=== PATIENT | female | born 1955 | race Caucasian/White ===

== ENCOUNTER → 2016-08-31 | Outpatient (CLI) | payer OTHER, MEDICAID ==
[~2016-08-31] MED LIST: BACITRACIN OINT30 GM TP; CARAFATE 1GM TAB1 GM PO; CIPRO 500MG TA500 MG PO; LEVOTHYROXIN0.075 M1 PO; LISINOPRIL 10MG10 MG PO; LORTAB 5/500 501 TAB PO; NEXIUM40 MG PO; NORCO 325 MG-51 TAB PO; PHENERGAN 25MG.25 M1 PO; PHENERGAN 25MG.25 MG PR; TESSALON PERLE100 MG PO; TRAMADOL50 M1 PO; VOLTAREN75 MG PO
--- NOTE | 2016-08-31 09:18 | RADIOLOGY REPORT PS360 ---
ELBOW-RT-3 VIEWS HISTORY: Follow-up fracture HEALING OF RT ELBOW FX ORDERING PHYSICIAN: CHEYENNE MARROQUIN MD PATIENT AGE: 61 years COMPARISON: 08/08/2016 FINDINGS: Healing fracture once again noted involving the neck of the radius with good alignment. Sclerosis noted at the radial neck as before. IMPRESSION: No change healing radial neck fracture
--- NOTE | 2016-08-31 09:18 | RADIOLOGY REPORT PS360 ---
ELBOW-RT-3 VIEWS HISTORY: Follow-up fracture HEALING OF RT ELBOW FX ORDERING PHYSICIAN: CHEEYNNE MARROQUIN MD PATIENT AGE: 61 years COMPARISON: 08/08/2016 FINDINGS: Healing fracture once again noted involving the neck of the radius with good alignment. Sclerosis noted at the radial neck as before. IMPRESSION: No change healing radial neck fracture
== END ==
LOC: RAD 08:29
DX: S52.134D Nondisplaced fracture of neck of right radius, subsequent encounter for closed fracture with routine healing (principal)

== ENCOUNTER 2016-09-20 11:07 | Emergency (ER) | payer MEDICAID ==
[~2016-09-20] VITALS: Ht 172.7 cm; Wt 87.1 kg
--- OUTSIDE RECORDS SUMMARY | 2016-09-20 11:14 | External Medical Summary Rpt ---
Demographics Preferred Language Albanian Marital Status Unknown Yazidi Affiliation Unknown Race Unknown Ethnic Group Unknown Author Author , Organization [employer] Address Unknown Phone Unavailable Purpose Continuity of Care Document - through 2016 Immunization No patient found.
--- OUTSIDE RECORDS SUMMARY | 2016-09-20 11:14 | External Medical Summary Rpt ---
Demographics Preferred Language Kiswahili Marital Status Unknown Methodist Affiliation Unknown Race Unknown Ethnic Group Unknown Author Author , Organization [employer] Address Unknown Phone Unavailable Purpose Continuity of Care Document - through 2016 Immunization No patient found.
--- OUTSIDE RECORDS SUMMARY | 2016-09-20 11:14 | External Medical Summary Rpt ---
Author Author BECKY Carballo, BECKY Carballo Organization [employer] Address Unknown Phone Unavailable
--- OUTSIDE RECORDS SUMMARY | 2016-09-20 11:14 | External Medical Summary Rpt ---
Author Author , Organization [employer] Address Unknown Phone Unavailable Care Team Providers Care Health Safety Coordinator Name Role Phone Marguerite Patel MD, Unavailable Unavailable Marguerite Patel MD Purpose Continuity of Care Document - 11-14-2012 through 2016 Problems Code Diagnosis DOS Provider Status 401.9 401.9 11-14-2012 Rufino HYPERTENSIO [facility] 844.9 844.9 11-14-2012 Rufino SPRAIN OF [facility] KNEE & LEG [facility] NOS 914.0 914.0 11-14-2012 Rufino ABRASION [facility] E849.3 E849.3 ACC 11-14-2012 Rufino ON INDUSTR [facility] E885.9 E885.9 FALL 11-14-2012 Rufino FROM [facility] SLIPPING, Hospital TRIPPING, OR STUMBLING [facility] V06.5 V06.5 11-14-2012 Rufino TETANUS-DIP [facility] [TD][DT] K27.9 PEPTIC ULC, SITE UNSP, UNSP AC OR CHR, W/O HEMOR OR PERF Allergies, Adverse Reactions, Alerts Type Drug Allergy Adverse Reaction to Substance Substance Reaction Severity Morphine Unknown Unknown Medications Na ND Rx Da Fi Fi Am Da Di Ph RX Ph St me C No te ll ll ou ys ag ar # ys at rm s nt no ma ic us Or Da si cy ia de te s n re d AD 49 07 0 No AC 28 -3 EL 10 1- Lo 40 20 ng TD 01 13 er AP 0 Ac ti AL ve BA 45 07 0 No CI 80 -3 TR 20 1- Lo AC 06 20 ng IN 07 13 er 0 50 Ac 0 ti UN ve IT /G M OI NT MN T Vital Signs 11-14-2012 11:41 Name Value Interpretat Reference Comment ion Range Body 98.5 [degF] Temperature BP 96 mm[Hg] Diastolic BP Systolic 170 mm[Hg] Heart 89 /min Rate/Pulse O2% 98 % Respiratory 20 /min Rate 11-14-2012 11:39 Name Value Interpretat Reference Comment ion Range Body 98.5 [degF] Temperature 11-14-2012 10:18 Name Value Interpretat Reference Comment ion Range BP 98 mm[Hg] Diastolic BP Systolic 163 mm[Hg] Heart 85 /min Rate/Pulse O2% 98 % Respiratory 20 /min Rate Encounters Encounter Start End Date Code Location Performer Type Date Emergency PUSHPA Patel MD (ER) 3 09:38 3 11:53 [facility]
--- OUTSIDE RECORDS SUMMARY | 2016-09-20 11:14 | External Medical Summary Rpt ---
Author Author [employer] Organization [employer] Address Unknown Phone Unavailable Purpose Continuity of Care Document - through 2016
--- OUTSIDE RECORDS SUMMARY | 2016-09-20 11:14 | External Medical Summary Rpt ---
Author Author , Organization [employer] Address Unknown Phone Unavailable Care Team Providers Care Wheel Installer Name Role Phone Marguerite Patel MD, Unavailable Unavailable Marguerite Patel MD Purpose Continuity of Care Document - 11-14-2012 through 2016 Problems Code Diagnosis DOS Provider Status 401.9 401.9 11-14-2012 Rufino HYPERTENSIO [facility] 844.9 844.9 11-14-2012 Rufino SPRAIN OF [facility] KNEE & LEG [facility] NOS 914.0 914.0 11-14-2012 Rufino ABRASION [facility] E849.3 E849.3 ACC 11-14-2012 Rufino ON INDUSTR [facility] E885.9 E885.9 FALL 11-14-2012 Rufino FROM [facility] SLIPPING, Hospital TRIPPING, OR STUMBLING [facility] V06.5 V06.5 11-14-2012 Rufino TETANUS-DIP [facility] [TD][DT] K27.9 PEPTIC ULC, SITE UNSP, UNSP [...] Patel MD (ER) 3 09:38 3 11:53 [facility]
--- NOTE | 2016-09-20 11:40 | Urgent Treatment Center Report ---
History of Present Issue Date/Time Seen by Provider 09/20/16 1139 Visit Reason Pt arrived:Walked Presenting Problem:PT STATES COUGH, HEADACHE AND CONGESTION THAT BEGAN MONDAY Location if Accident: Onset of symptoms date/time:09/17/16/ or onset unknown for:MEDICAL HX UNKNOWN Have you (or family members/close friends) recently traveled outside the [place]? N If Yes, where/when: Have you had exposure to infectious disease within the past month? TB? Other? Specify: Source patient Exam Limitations no limitations Comment 61-year-old female presents for fever(103), cough and chest congestion for a few days. Patient states she's coughed and made her ribs sore. ALLERGIES Coded Allergies: morphine (Intermediate, I-RASH/ITCHING 03/19/15) Home Medications Active Scripts BENZONATATE (Benzonatate) 100 MG PO TID #15 CAP Prov: 04/12/14 LISINOPRIL (Lisinopril) 10 MG PO DAILY #30 TAB Prov: 04/12/14 HYDROCODONE/ACETAMINOPHEN ([place] 5-325 Tablet) 1 TAB PO Q6HP PRN moderate to severe pain #8 TAB Prov: 07/12/16 Reported Medications Levothyroxine Sodium (Levothyroxine 0.075MG) 0.075 MG PO DAILY #30 History Medical History General CAD? No Angina: No [place]: No Hypertension? Yes Hyperlipidemia? Yes CHF? No DVT? No PE? No COPD? No Asthma? No Anemia? No GERD? No Gastric ulcers? No GI Bleed? No Hernia? No Thyroid Problems? Yes Hypothyroidism? Yes CVA? No Seizures? No Diabetes? No Renal Insuffiency? No UTI? No Stones? No GB Disease: Yes Nephritic Syndrome? No Asplenia? No Hepatitis? No Sickle Cell Disease? No Arthritis? Yes Migraines? No Cataracts? No Glaucoma? No MRSA? No HIV? No TB? No Anxiety? No Depression? No Cancer? No More? No Immunization HX DT/Tetanus 11/14/12 Flu 2014-FSN Pneumonia NEVER Surgical Hx Previous Surgery?Y HYSTERECTOMY GROWTH REMOVED NECK GALL BLADDER HEART ABLATION LT FEMUR FX REPAIR Family History Family HX Diabetes No CAD No Hypertension Yes Hyperlipidemia No Cancer No TB No Social History Smoking Hx Smoker: Never Smoker Tobacco: No Alcohol Alcohol: No Review of Systems All Other Systems Reviewed and Negative Constitutional see HPI, fever Eyes denies no symptoms reported Respiratory see HPI, cough Physical Exam Vital Signs Vital Signs Date Time Temp Pulse Resp B/P Pulse O2 O2 Flow FiO2 Ox Delivery Rate 09/20 1127 97.9 93 22 171/88 96 - WBC >12,000 or <4,000 or 10% bands? 2 or more SIRS Criteria Met? B/P:171/88 MAP:115 Creatinine >2.0? UA output<0.5ml/kg/hr for 2 hrs? Platelet count >100,000? Lactate >2.0mmol/1? INR >1.2 or PTT > than 60 sec? Evidence of Organ Dysfunction? Provider documented clinical suspician of infection? Sepsis Criteria Count: 2 Sepsis Risk: General Appearance normal appearance, no apparent distress Eye Exam - bilateral eye normal exam, bilateral eye PERRL, bilateral eye EOMI Ear, Nose, Throat hearing grossly normal, normal ENT inspection Neck normal inspection, full range of motion Respiratory Status Yes: trachea midline, chest symmetrical, non tender chest. No: respiratory distress. Lung Sounds bilateral: normal breath sounds, lungs clear. Cardiovascular normal exam, regular rate/rhythm, no peripheral edema Neurologic alert, normal exam, oriented x 3 Medical Decision Making LABS/Meds/Orders Pt receiving controlled substance in ED? No Results/Orders Orders Procedure Date/time Status CHEST(2 VIEWS-NOT PORTABLE) 09/20 1138 Active XRAY/CT/US XRAY/CT/US XRAY chest Xray Results normal/NAD, no infiltrates Departure Departure Time of Disposition 1237 Disposition DC Home or Self Care(routine) Clinical Impression Primary Impression: Acute bronchitis Qualifiers: Bronchitis organism: unspecified organism Qualified Code: J20.9 - Acute bronchitis, unspecified Condition STABLE Referrals Neftaly GARCÍA,Sly Garza (Family) Patient Instructions DI for Acute Bronchitis Additional Instructions Tylenol and Motrin as needed for pain or fever, follow-up with PCP this week, return or be seen in the ER if symptoms worsen or do not improve Discharge Counseling Counseled pt/family regarding diagnosis, test results, medications/RX, home care, follow up needs Prescriptions Current Visit Scripts Azithromycin (Zithromax) 250 MG PO DAILY #6 TAB USE DIRECTED. Benzonatate (Tessalon Perle) 100 MG PO BID 5 Days Comments Tylenol Motrin as needed for pain or fever, follow-up with PCP this week, return or be seen in the ER if symptoms worsen or do not improve at 3872
--- NOTE | 2016-09-20 12:16 | RADIOLOGY REPORT PS360 ---
CHEST(2 VIEWS-NOT PORTABLE) HISTORY: COUGH ORDERING PHYSICIAN: Irena Sheets PATIENT AGE: 61 years COMPARISON: 02/25/2014 FINDINGS: The cardiomediastinal silhouette and pulmonary vascularity are within normal limits. The lungs are clear without infiltrates, suspicious nodules, or pleural effusions. No acute bony abnormalities. IMPRESSION: No change with no acute finding
[2016-09-20] MEDS ORDERED: ZITHROMAX Z-PA250 M2 PO (12:38)
[2016-09-20] MEDS ORDERED: TESSALON PERLE100 M1 PO (12:38)
[2016-09-20 12:53] VITALS: BP 171/88
[2016-09-26] MEDS ORDERED: LISINOPRIL40 MG PO (09:07)
== END 2016-09-20 12:54 | disposition home or self-care (01) ==
LOC: UTC 11:07
DX: J20.9 Acute bronchitis, unspecified (principal); I10 Essential (primary) hypertension

== ENCOUNTER → 2017-01-03 | Outpatient (CLI) | payer MEDICAID, OTHER ==
[~2017-01-03] MED LIST changes: +LISINOPRIL40 MG PO; +TESSALON PERLE100 M1 PO; +ZANAFLEX4 M3 PO; +ZITHROMAX Z-PA250 M2 PO
== END ==
LOC: LAB 20:30
DX: E03.9 Hypothyroidism, unspecified (principal)

== ENCOUNTER 2017-01-12 12:27 | Emergency (ER) | payer MEDICAID ==
[~2017-01-12] VITALS: Ht 177.8 cm; Wt 90.7 kg
--- NOTE | 2017-01-12 13:08 | Emergency Room Report ---
History of Present Illness Time Seen by MD Pineda Presenting Problem in Triage Pt arrived:Walked Presenting Problem:PT HAS HAD UPPER ABD PAIN/PRESSURE SINCE MONDAY AND DIARRHEA. STATES SHE FEELS NAUSEATED PT FURTHER STATES SHE USED TO HAVE ULCERS. Onset of symptoms date/time:/ or onset unknown for:MEDICAL HX UNKNOWN Treatment Prior to Arrival: BAKERY WORKER Provided by: Sepsis Risk Assessment: Temp: 98.3 B/P: 199/100 MAP: 133 Pulse: 75 Resp: 18 Recent fever? N Clinical Suspician of Infection? N Mental Status: 1 - Regular (Normal Baseline) Sepsis Risk:Low Sepsis Risk Have you (or family members/close friends) recently traveled outside the [place]? N If Yes, where/when: Have you had exposure to infectious disease within the past month? TB? Other? Specify: 61 years old white female who presents with upper abdominal pain started 3 days ago. By diarrhea 5 times a day. She uses nonsteroidal's for arthritis. She denies vomiting hematemesis bleeding per rectum or black stool. Denies having any chest pain, palpiattions or soa. Source patient, RN notes reviewed Exam Limitations no limitations ALLERGIES Coded Allergies: morphine (Intermediate, I-RASH/ITCHING 01/12/17) Home Medications Active Scripts TIZANIDINE HCL (Zanaflex) 4 MG PO TID #90 TAB Ref 2 Prov: 11/08/16 Reported Medications Lisinopril (Lisinopril 40MG) 40 MG PO DAILY Levothyroxine Sodium (Levothyroxine 0.075MG) 0.075 MG PO DAILY #30 History Medical History General CAD? No Angina: No [place]: No Hypertension? Yes Hyperlipidemia? Yes CHF? No DVT? No PE? No COPD? No Asthma? No Anemia? No GERD? No Gastric ulcers? No GI Bleed? No Hernia? No Thyroid Problems? Yes Hypothyroidism? Yes CVA? No Seizures? No Diabetes? No Renal Insuffiency? No End Stage Renal Disease? No UTI? No Stones? No GB Disease: Yes Nephritic Syndrome? No Asplenia? No Hepatitis? No Sickle Cell Disease? No Arthritis? Yes Migraines? No Cataracts? No Glaucoma? No MRSA? No HIV? No TB? No Anxiety? No Depression? No Cancer? No More? Yes Additional hx: RHEUMATOID ARTHRITIS Immunization Hx Ped.Immunizations UTD Yes DT/Tetanus 11/14/12 Flu 2014-FSN Pneumonia NEVER Surgical Hx Previous Surgery?Y HYSTERECTOMY GROWTH REMOVED NECK GALL BLADDER HEART ABLATION LT FEMUR FX REPAIR RIGHT CARPAL TUNNEL Family History Family Hx Diabetes No CAD No Hypertension Yes Hyperlipidemia No Cancer No TB No Social History Smoking Hx Smoker: Former Smoker Tobacco: No Type N/A Are you/the child exposed to second-hand smoke: No Alcohol Alcohol: No Review of Systems All Other Systems Reviewed and Negative Constitutional no symptoms reported Eyes no symptoms reported ENT no symptoms reported. Respiratory no symptoms reported Cardiovascular no symptoms reported Gastrointestinal see HPI, abdominal pain, diarrhea Genitourinary no symptoms reported. Musculoskeletal no symptoms reported Skin no symptoms reported Psychiatric/Neurological no symptoms reported Physical Exam Vital Signs Vital Signs Date Time Temp Pulse Resp B/P Pulse O2 O2 Flow FiO2 Ox Delivery Rate 01/12 1403 75 18 162/85 98 01/12 1327 77 18 157/87 98 01/12 1246 98.3 75 18 199/100 98 - WBC >12,000 or <4,000 or 10% bands? 2 or more SIRS Criteria Met? B/P:199/100 MAP:133 Creatinine >2.0? UA output<0.5ml/kg/hr for 2 hrs? Platelet count >100,000? Lactate >2.0mmol/1? INR >1.2 or PTT > than 60 sec? Evidence of Organ Dysfunction? Provider documented clinical suspician of infection? N Sepsis Criteria Count: 0 Sepsis Risk: Low Sepsis Risk General Appearance normal appearance, WD/WN Eye Exam - bilateral eye normal exam, bilateral eye PERRL, bilateral eye EOMI Ear, Nose, Throat hearing grossly normal, normal ENT inspection Neck normal inspection, non-tender, supple, full range of motion Respiratory Status Yes: trachea midline, chest symmetrical, non tender chest. No: respiratory distress. Lung Sounds bilateral: normal breath sounds, lungs clear. Cardiovascular normal exam, regular rate/rhythm, no peripheral edema, no gallop, no JVD, no murmur, no rub, normal peripheral pulses Peripheral Pulses Pulses normal Yes Gastrointestinal normal bowel sounds, obese abdomen with diffuse mild tenderness and voluntary guarding, no focal tenderness no cross tenderness no rebound tenderness. Positive bowel sounds Extremities non-tender, normal range of motion, normal inspection Rectal normal exam Neurologic alert, wood filler II-XII nml as tested, normal exam, oriented x 3 Reflexes Reflexes normal Yes Skin intact, normal color, warm/dry Medical Decision Making LABS/Meds/Orders Pt receiving controlled substance in ED? No Results/Orders Laboratory Tests 01/12/17 1310: Troponin I Cancelled 01/12/17 1305: Stool Occult Blood NEGATIVE 01/12/17 1304: TSH 8.25 H, Free T4 Index 6.0, Thyroxine (T4) 7.6, T3 Uptake 32 01/12/17 1304: Sodium 140, Potassium 3.9, Chloride 107, Carbon Dioxide 26, BUN 15, Creatinine 0.9, Estimated Creat Clear 95, Estimated GFR (MDRD) 64, Glucose 115 H, Calcium 9.1, Total Bilirubin 0.3, AST 13 L, ALT 27, Alkaline Phosphatase 81, Creatine Kinase 42, CK-MB (CK-2) Rel Index 1.2, CK and CKMB Interp < 0.5, Troponin I < 0.02, Total Protein 7.4, Albumin 4.2, Globulin 3.2, Albumin/Globulin Ratio 1.3, Lipase 202, WBC 6.6, RBC 4.73, Hgb 14.0, Hct 41.7, MCV 88.2, RDW 15.3, Plt Count 234, Gran % 64.2, Gran # 4.2, Lymphocytes % 31.1, Monocytes % 4.7, Lymphocytes # 2.1, Monocytes # 0.3, PUBS MCHC 33.6, MCH 29.6 Current Medication Orders Sig/Sahara Start time Last Medication Dose Route Stop Time Status Admin Iopamidol 75 ML ONCE ONE 01/12 1530 DC 01/12 IV 01/12 1531 1518 Sodium Chloride 10 ML ONCE ONE 01/12 1530 DC 01/12 IV 01/12 1531 1518 Famotidine 0 .STK-MED ONE 01/12 1331 DC IV Ondansetron HCl 0 .STK-MED ONE 01/12 1331 DC .ROUTE Dicyclomine HCl 0 .STK-MED ONE 01/12 1330 DC PO Dicyclomine HCl 10 MG ONCE ONE 01/12 1315 DC 01/12 PO 01/12 1316 1334 Famotidine 20 MG ONCE ONE 01/12 1315 DC 01/12 IV 01/12 1316 1334 Ondansetron HCl 4 MG ONCE ONE 01/12 1315 DC 01/12 IV 01/12 1316 1334 Sodium Chloride 8 ML ONCE ONE 01/12 1315 DC 01/12 IV 01/12 1316 1335 Sodium Chloride 10 ML PRN PRN 01/12 1300 AC IV 01/13 1249 Diatrizoate Meglum/ 0 .STK-MED ONE 01/12 1259 DC Diatrizoate Sod .ROUTE Orders Procedure Date/time Status DIET-NOTHING BY MOUTH 01/12 D Active THYROID PANEL 2 (WITH TSH) 01/12 1310 Complete DIARRHEA PANEL, PCR 01/12 1308 Active 12 LEAD EKG-BESSON (INITIAL) 01/12 1249 Active ELECTROCARDIOGRAM REQUEST 01/[address] ABD/PELVIS REQ 01/12 1249 Complete IV SALINE LOCK 01/12 1249 Active STOOL OCCULT BLOOD 01/12 1249 Active LIPASE 01/12 1249 Complete CBC WITH AUTO DIFF 01/12 1249 Complete CARDIAC ENZYMES 01/12 1249 Complete CHEM 12 PROFILE 01/12 1249 Complete Departure Departure Time of Disposition 1607 Disposition DC Home or Self Care(routine) Clinical Impression Primary Impression: Abdominal pain of unknown etiology Secondary Impressions: Carotid arterial disease, Diarrhea Condition STABLE Referrals CAMILLA GARCÍA,M S ([facility]) Additional Instructions The patient remained stable. She did not have diarrhea. She did not provide a stool sample CT scan with IV contrast was unremarkable. I discussed the results and discharge plans with her. Her abdomen was soft with minimal tenderness. In fact she felt better. I explained her prescriptions and she will return if she feels worse. She'll need follow-up with Dr. Jj on her diarrhea She will nee out patient carotid US per Dr Jj. SHe felt better wafter using bentyl. Discharge Counseling Counseled pt/family regarding diagnosis, test results, medications/RX, home care, follow up needs Prescriptions Current Visit Scripts Metronidazole (Flagyl 250MG) 250 MG PO Q8 #21 TAB CIPROFLOXACIN HCL (Cipro 250MG TAB) 250 MG PO BID #14 TAB Famotidine (Pepcid 20MG) 20 MG PO Q12 #14 TAB DICYCLOMINE HCL (Bentyl) 10 MG PO Q8HP PRN cramps #21 CAP ED Critical Care Critical Care No If Critical Care minutes are documented, the time involved in the performance of seperately reportable procedures was not counted toward critical care time documented. I directly delivered medical care to this critically ill and/or injured patient. Timely evaluation and treatment was necessary to address the significant organ system(s) dysfunction present in this patient. at 1614
[2017-01-12 13:12] LABS: STOOL OCCULT BLOOD NEGATIVE (NEG)
[2017-01-12 13:13] LABS: LYMPH # 2.1 K/mm3 (0.7-4.5); LYMPH % 31.1 % (10-50.0)
[2017-01-12 13:37] LABS: BUN 15 mg/dL (7-18); GFR (ESTIMATED) 64 ML/MIN (59-)
--- NOTE | 2017-01-12 15:23 | RADIOLOGY REPORT PS360 ---
CHEST(2 VIEWS-NOT PORTABLE) HISTORY: Chest pain S ORDERING PHYSICIAN: Bo Clements MD PATIENT AGE: 61 years COMPARISON: [id number] FINDINGS: The cardiomediastinal silhouette and pulmonary vascularity are within normal limits. The lungs are clear without infiltrates, suspicious nodules, or pleural effusions. No acute bony abnormalities. Left-sided carotid artery calcification consistent with carotid artery disease IMPRESSION: No change with no acute finding Carotid artery disease on the left
--- NOTE | 2017-01-12 15:23 | RADIOLOGY REPORT PS360 ---
CHEST(2 VIEWS-NOT PORTABLE) HISTORY: Chest pain S ORDERING PHYSICIAN: Bo Clements MD PATIENT AGE: 61 years COMPARISON: [id number] FINDINGS: The cardiomediastinal silhouette and pulmonary vascularity are within normal limits. The lungs are clear without infiltrates, suspicious nodules, or pleural effusions. No acute bony abnormalities. Left-sided carotid artery calcification consistent with carotid artery disease IMPRESSION: No change with no acute finding Carotid artery disease on the left
--- NOTE | 2017-01-12 15:58 | RADIOLOGY REPORT PS360 ---
CT ABD PELVIS W/ CONTRAST CLINICAL INDICATION: ABD PAIN,DARK STOOLS,DIARRHEA ORDERING PHYSICIAN: Bo Clements MD PATIENT AGE: 61 years COMPARISON: 02/25/2014 TECHNIQUE: Axial images obtained with sagittal and coronal reformats. PROCEDURE: Oral Contrast: None IV Contrast: 75 mL's Isovue-370. FINDINGS: Lower chest shows coronary artery calcification. Prior cholecystectomy. No biliary dilatation. The liver, spleen, adrenal glands, pancreas, and kidneys have an unremarkable appearance. No evidence of aortic aneurysm. Unremarkable appendix. No intestinal structure in or free air. There is diverticulosis of the sigmoid colon but no evidence of diverticulitis. No intestinal obstruction or free air. There is a tiny umbilical hernia containing fat. There has been a prior hysterectomy Artifact is present from left hip and. No acute bony anomalies. IMPRESSION: No acute intra-abdominal or pelvic findings Diverticulosis. No evidence of diverticulitis
[2017-01-12] MEDS ORDERED: Pepcid20 MG PO (16:11)
[2017-01-12] MEDS ORDERED: CIPRO 250MG TA250 MG PO (16:11)
[2017-01-12] MEDS ORDERED: FLAGYL 250MG.250 MG PO (16:11)
[2017-01-12] MEDS ORDERED: BENTYL10 M1 PO (16:11)
[2017-01-12 16:49] VITALS: BP 155/80
== END 2017-01-12 16:49 | disposition home or self-care (01) ==
LOC: ER 12:27
PROVIDERS: Emergency Medicine
DX: R10.10 Upper abdominal pain, unspecified (principal); R19.7 Diarrhea, unspecified; Z88.6 Allergy status to analgesic agent; I10 Essential (primary) hypertension; E03.9 Hypothyroidism, unspecified
CPT/HCPCS: G0328; J2405; Q9967

== ENCOUNTER → 2017-01-17 | Outpatient (CLI) | payer MEDICAID ==
[2017-01-17 13:11] LABS: HEMOGLOBIN 13.9 g/dL (12.2-16.2); LYMPH # 1.8 K/mm3 (0.7-4.5); LYMPH % 34.2 % (10-50.0)
[2017-01-17 14:14] LABS: BUN 13 mg/dL (7-18)
[2017-01-17 14:22] LABS: GFR (ESTIMATED) 73 ML/MIN (59-)
== END ==
LOC: LAB 12:56
PROVIDERS: Physician Assistant
DX: I77.9 Disorder of arteries and arterioles, unspecified (principal); R10.13 Epigastric pain; I10 Essential (primary) hypertension; E03.9 Hypothyroidism, unspecified

== ENCOUNTER → 2017-01-23 | Outpatient (CLI) | payer MEDICAID ==
[~2017-01-23] MED LIST changes: +BENTYL10 M1 PO; +CIPRO 250MG TA250 MG PO; +FLAGYL 250MG.250 MG PO; +Pepcid20 MG PO
--- NOTE | 2017-01-23 10:33 | RADIOLOGY REPORT PS360 ---
BONE DENSITOMETRY(HIP:LT SPINE HISTORY: POST MENOPAUSAL, HX FRACTURES ORDERING PHYSICIAN: SAÚL EDOUARD PATIENT AGE: 61 years COMPARISON: None FINDINGS: The BMD measured at L1-L4 is 0.972 g/cm squared with a T score of -1.7. This is considered Osteopenic according to the World Health Organization criteria. Fracture risk is Moderate. Treatment is advised. IMPRESSION: Osteopenia with moderate fracture risk. Treatment recommended. Recommend follow up exam January 2019
== END ==
LOC: RAD 01-18 10:00
DX: Z87.81 Personal history of (healed) traumatic fracture (principal)

== ENCOUNTER → 2017-02-03 | Outpatient (CLI) | payer MEDICAID ==
--- NOTE | 2017-02-03 15:27 | CARDIOVASCULAR REPORT ---
"Cerebrovascular Exam Indications: 433.10 Occlusion/stenosis of carotid artery without cerebral infarction. IMPRESSIONS 1. The bilateral vertebral arteries are patent with normal antegrade flow. 2. Study suggests less than 20% stenosis involving the right internal carotid artery and the left internal carotid artery. History: Risk factors: Hypertension. Carotid duplex study. Complete study and Doppler flow study including spectral analysis, color and brewster scale imaging. Location: Vascular laboratory. Patient status: Outpatient. Tables: Arterial flow: + +--------+--------+ |Location |V sys |V ed | + +--------+--------+ |Right CCA - proximal|90.4cm/s|18.1cm/s| + +--------+--------+ |Right CCA - distal |84.9cm/s|18.9cm/s| + +--------+--------+ |Right ECA |65.2cm/s|--------| + +--------+--------+ |Right ICA - proximal|46.4cm/s|14.1cm/s| + +--------+--------+ |Right ICA - mid |83.3cm/s|29.1cm/s| + +--------+--------+ |Right ICA - distal |101cm/s |35.4cm/s| + +--------+--------+ |Right vertebral |45.6cm/s|--------| + +--------+--------+ |Left CCA - proximal |90.4cm/s|18.9cm/s| + +--------+--------+ |Left CCA - distal |61.3cm/s|11.8cm/s| + +--------+--------+ |Left ECA |73.1cm/s|--------| + +--------+--------+ |Left ICA - proximal |62.1cm/s|17.3cm/s| + +--------+--------+ |Left ICA - mid |94.3cm/s|29.9cm/s| + +--------+--------+ |Left ICA - distal |73.1cm/s|24.4cm/s| + +--------+--------+ |Left vertebral |36.9cm/s|--------| + +--------+--------+ Velocity ratios: + + + + + + | |Right, V sys|Right, V ed|Left, V sys|Left, V ed| + + + + + + |Max ICA/dist CCA|1.19 |1.87 |1.54 |2.53 | + + + + + + (Report amended ) Electronically signed by: Daniel Nuno [id number]"
[2017-02-03 17:19] LABS: BUN 15 mg/dL (7-18)
[2017-02-03 17:20] LABS: GFR (ESTIMATED) 73 ML/MIN (59-)
--- NOTE | 2017-02-06 18:01 | RADIOLOGY REPORT PS360 ---
PROCEDURE: 2-D M-mode and color Doppler study INDICATIONS FOR THE TEST: Chest pain+ COPD Heart Murmur Tobacco Smoking Palpitations Fatigue+ Syncope Edema Hypertension+Diabetes Mellitus Rheumatic Fever SOB+MASTERS+Obesity Hyperlipidemia Family History HD+ Additional History CAD, abn EKG PATIENT INFORMATION HEIGHT: 67 WEIGHT:213 GENDER: Female B/P:195/105 2-D/M-MODE INTERPRETATION: 2-D MEASUREMENTS OBSERVED VALUES IN CMS Right Ventricular Dimension (RVDd) 1.5 Interventricular Septum (Thickness)(IVsd) 1.0 Left Ventricular Internal Dimensions(LVIDd) 4.5 Left Ventricular Posterior Wall (Thickness)(LVPWd) 1.0 Aortic Root 3.0 Aortic Cusp Separation 2.1 Left Atrial Dimensions (LAD) 3.6 2D 1. Left atrium is mildly enlarged, left ventricle is normal size, left ventricle wall thickness is upper limit of normal, septum has sigmoid configuration, visually estimated ejection fraction of 55% with no obvious regional wall motion abnormality. 2. The right atrium and right ventricle is normal size and contractility. 3. The aortic valve is minimally thickened and fibrosed. 4. The mitral and tricuspid valves are grossly normal. 5. The pulmonic valve is poorly visualized. 6. No significant pericardial effusion noted. DOPPLER INTERROGATION: Doppler interrogation of the aortic, mitral and tricuspid valvular presence of mild mitral and tricuspid regurgitation, tricuspid and jet velocity insufficient for calculation of the right ventricular systolic pressure, grade 1 diastolic dysfunction seen without tissue Doppler evidence of raised left atrial pressure. CONCLUSION: 1. Mildly enlarged left atrium, normal left ventricular size, visually estimated ejection fraction 55% with no obvious regional wall motion abnormality, grade 1 diastolic dysfunction seen without tissue Doppler evidence of raised left atrial pressure. 2. Mild mitral and tricuspid regurgitation. 3. No significant pericardial effusion noted.
== END ==
LOC: LAB 14:10 → RT 14:10
PROVIDERS: Internal Medicine Cardiovascular Disease
DX: R07.9 Chest pain, unspecified (principal); R94.31 Abnormal electrocardiogram [ECG] [EKG]; R06.09 Other forms of dyspnea; R10.13 Epigastric pain; I10 Essential (primary) hypertension; I25.10 Atherosclerotic heart disease of native coronary artery without angina pectoris

== ENCOUNTER → 2017-02-07 | Outpatient (CLI) | payer MEDICAID ==
--- NOTE | 2017-02-09 15:11 | RADIOLOGY REPORT PS360 ---
History and Indications: Coronary artery disease, hypertension, family history, chest pain, shortness of breath and abnormal EKG Procedure: Patient received a 0.4 mg of Lexiscan, resting heart rate was 80 bpm, resting blood pressure 170/82, with Lexiscan maximum heart rate achieved was 112 bpm is less than 85% of the maximum predicted heart rate and a blood pressure was 150/83. With Lexiscan patient complained of shortness of breath and nausea. Electrocardiogram: Resting electrocardiogram show atrial fibrillation with controlled ventricular response, with Lexiscan there is less than 1.[address] segment depression noted from the baseline EKG. The EKG portion of the Lexiscan is nondiagnostic. Cardiac stress and resting SPECT images: Cardiac stress and resting SPECT images were obtained using technetium 99 Myoview 10.9 mCi at rest and 31.2 mCi at stress, gated SPECT further analysis of segmental wall motion and calculation of the ejection fraction also done. Cardiac stress and rest SPECT images show uniform myocardial activity without any segmental perfusion abnormality, computer derived ejection fraction is over 65% with no obvious regional wall motion abnormality, right ventricle is normal size and contractility. Conclusion: 1. The EKG portion of the Lexiscan Myoview is nondiagnostic. Underlying rhythm is atrial fibrillation. 2. No obvious scintigraphic evidence of reversible ischemia seen, computer derived ejection fraction is over 65% with no obvious regional wall motion abnormality, right ventricle is normal size and contractility.
== END ==
LOC: RAD 07:00
DX: R07.9 Chest pain, unspecified (principal); R06.09 Other forms of dyspnea; I10 Essential (primary) hypertension; I25.10 Atherosclerotic heart disease of native coronary artery without angina pectoris; R10.13 Epigastric pain; R94.31 Abnormal electrocardiogram [ECG] [EKG]
CPT/HCPCS: A9502; J2785

== ENCOUNTER 2017-02-22 07:30 | Day surgery (SDC) | payer MEDICAID ==
[2017-02-22 08:08] LABS: LYMPH # 2.1 K/mm3 (0.7-4.5); LYMPH % 31.1 % (10-50.0)
[2017-02-22 08:34] LABS: BUN 17 mg/dL (7-18); GFR (ESTIMATED) 64 ML/MIN (59-)
--- NOTE | 2017-02-22 11:01 | RADIOLOGY REPORT PS360 ---
CARDIAC CATHETERIZATION DATE OF CATHETERIZATION:02/22/2017 10:39 AM PROCEDURES: 1. Left heart catheterization 2. Left ventriculogram 3. Selective coronary angiogram INDICATION FOR TEST: 1. Angina pectoris 2. Recalcitrant symptoms despite medications 3. Risk factors for coronary artery disease Informed consent was obtained prior to the procedure. COMPLICATIONS: None ESTIMATED BLOOD LOSS: Less than 10 ml. TECHNIQUE: One percent lidocaine used to anesthetize the right anterior aspect of the wrist. The right radial artery was accessed via the Seldinger technique. A 6 Vietnamese sheath was placed in the right radial artery. 2.5 mg of verapamil, 800 mcg of nitroglycerin and 5000 U Heparin were given through the arterial sheath. The trap catheter was also used to perform left heart catheterization and left ventriculography. At the end of the procedure the patient was transferred to the post-op holding area in stable condition for arterial sheath removal. ANGIOGRAPHIC RESULTS: 1. The left main artery normal 2. The left anterior descending artery normal 3. The circumflex artery normal 4. The right coronary artery normal 5. The RAYMUNDO ventriculogram reveals normal 65% 6. The left ventricular end-diastolic pressure 15 mmHg IMPRESSION: 1. Normal coronary arteries. 2. Normal ejection fraction 3. Mildly elevated LVEDP PLAN: 1. Medical management 2. Low-dose diuretics might assist in patient shortness of air given her mildly elevated LVEDP 3. Risk factor modification
[2017-02-22 14:37] VITALS: BP 145/86
== END 2017-02-22 14:50 | disposition home or self-care (01) ==
LOC: CATHLAB 07:30
PROVIDERS: Internal Medicine
PROC: B2111ZZ Fluoroscopy of Multiple Coronary Arteries using Low Osmolar Contrast (ICD-10-PCS; 2017-02-22)
PROC: B2151ZZ Fluoroscopy of Left Heart using Low Osmolar Contrast (ICD-10-PCS; 2017-02-22)
PROC: 4A023N7 Measurement of Cardiac Sampling and Pressure, Left Heart, Percutaneous Approach (ICD-10-PCS; principal; 2017-02-22 09:45)
DX: R07.9 Chest pain, unspecified (principal); I10 Essential (primary) hypertension; R06.00 Dyspnea, unspecified; I48.0 Paroxysmal atrial fibrillation
CPT/HCPCS: C1725; C1769; J1644; Q9967

== ENCOUNTER → 2017-03-22 | Outpatient (CLI) | payer MEDICAID ==
--- NOTE | 2017-03-22 08:50 | CARDIOVASCULAR REPORT ---
"Renal Arterial Duplex Indications: HTN. IMPRESSIONS Normal study. Complete renal arterial duplex. Duplex scan and Doppler flow study including spectral analysis, color and brewster scale imaging. Height: Height: 177.8cm. Height: 70in. Weight: Weight: 96.6kg. Weight: 212.6lb. Body mass index: BMI: 30.6kg/m^2. Body surface area: BSA: 2.21m^2. Location: Vascular laboratory. Patient status: Outpatient. Tables: Arterial flow: + +--------+--------+---------+ |Location |V sys |V ed |Resistive| + +--------+--------+---------+ |Right renal - proximal|88.5cm/s|29.8cm/s|0.60 | + +--------+--------+---------+ |Right renal - mid |69.9cm/s|24cm/s |0.70 | + +--------+--------+---------+ |Right renal - distal |69.9cm/s|25.4cm/s|0.70 | + +--------+--------+---------+ |Left renal - proximal |108cm/s |34.2cm/s|0.70 | + +--------+--------+---------+ |Left renal - mid |96.8cm/s|37.2cm/s|0.60 | + +--------+--------+---------+ |Left renal - distal |93.9cm/s|41.1cm/s|0.60 | + +--------+--------+---------+ Renal anatomy: + +-----+-----+ | |Left |Right| + +-----+-----+ |Long axis |9.6cm|9.4cm| + +-----+-----+ |Short axis |5.5cm|4.3cm| + +-----+-----+ |Cortical thickness|1.1cm|1.2cm| + +-----+-----+ Velocity ratios: + +-----+ | |V sys| + +-----+ |Right renal/aortic|0.9 | + +-----+ |Left renal/aortic |1 | + +-----+ (Report amended ) Electronically signed by: Daniel Nuno [id number]"
== END ==
LOC: RT 07:39 → RAD 10:00
DX: I10 Essential (primary) hypertension (principal); E03.9 Hypothyroidism, unspecified; I48.0 Paroxysmal atrial fibrillation